=== PATIENT | female | born 1970 | race Caucasian/White ===

== ENCOUNTER 2017-12-27 09:33 | Emergency (ER) | payer MEDICAID ==
[~2017-12-27] VITALS: Ht 157.5 cm; Wt 56.7 kg
[2017-12-27 09:35] VITALS: BP 118/60
[2017-12-27] MEDS ORDERED: ALBUTEROL FS 2.5 MG/3 ML VIAL.NEB ONE (09:56)
[2017-12-27] MEDS ORDERED: IPRATROPIUM NEB FS 0.5 MG/2.5 ML AMPUL.NEB ONE (09:56)
[2017-12-27] MEDS ORDERED: IPRATROPIUM NEB FS 0.5 MG/2.5 ML AMPUL.NEB NEB ONE (10:00)
[2017-12-27] MEDS ORDERED: ALBUTEROL FS 2.5 MG/3 ML VIAL.NEB NEB ONE (10:00)
[2017-12-27] MEDS ORDERED: predniSONE 20 MG TABLET PO ONE (10:00)
[2017-12-27] MEDS ORDERED: predniSONE 20 MG TABLET ONE (10:11)
== END 2017-12-27 11:24 | disposition home or self-care (01) ==
LOC: ER 09:35
DX: J45.901 Unspecified asthma with (acute) exacerbation (principal)
CPT/HCPCS: 94640 ×2; 99284; A4606; J7512; Z7610

== ENCOUNTER 2018-03-21 23:22 | Emergency (ER) | payer BC ==
[2018-03-21] MEDS ORDERED: KETOROLAC TROMETHAMINE INJ 30 MG/ML VIAL ONE (23:54)
[2018-03-22] MEDS ORDERED: IV NS 0.9% 1,000 ML BAG IV ONE
[2018-03-22] MEDS ORDERED: KETOROLAC TROMETHAMINE INJ 30 MG/ML VIAL IV ONE
== END 2018-03-22 02:29 | disposition home or self-care (01) ==
DX: N13.2 Hydronephrosis with renal and ureteral calculous obstruction (principal); D25.9 Leiomyoma of uterus, unspecified; D72.829 Elevated white blood cell count, unspecified; J45.909 Unspecified asthma, uncomplicated; N83.201 Unspecified ovarian cyst, right side

== ENCOUNTER 2018-11-01 08:26 | Emergency (ER) | payer BC ==
[~2018-11-01] VITALS: Ht 157.5 cm; Wt 59.0 kg
[2018-11-01 08:44] VITALS: BP 97/55
== END 2018-11-01 09:03 | disposition home or self-care (01) ==
LOC: ER 08:26
DX: L03.213 Periorbital cellulitis (principal); H00.016 Hordeolum externum left eye, unspecified eyelid; J45.909 Unspecified asthma, uncomplicated
CPT/HCPCS: 99283; A4606; Z7610

== ENCOUNTER 2019-02-12 21:18 | Emergency (ER) | payer BC ==
[~2019-02-12] VITALS: Ht 157.5 cm; Wt 56.7 kg
[2019-02-12 21:57] VITALS: BP 115/78
[2019-02-12] MEDS: IPRATROPIUM NEB FS 0.5 MG/2.5 ML AMPUL.NEB NEB ONE (23:46)
[2019-02-12] MEDS: ALBUTEROL FS 2.5 MG/3 ML VIAL.NEB NEB ONE (23:46)
[2019-02-12] MEDS ORDERED: IPRATROPIUM NEB FS 0.5 MG/2.5 ML AMPUL.NEB ONE (23:49)
[2019-02-12] MEDS ORDERED: ALBUTEROL FS 2.5 MG/3 ML VIAL.NEB ONE (23:49)
[2019-02-12] MEDS ORDERED: methylPREDNISolone SOD SUCC 125 MG/2ML VIAL ONE (23:59)
[2019-02-13] MEDS ORDERED: methylPREDNISolone SOD SUCC 125 MG/2ML VIAL IM ONE
[2019-02-13] MEDS: IPRATROPIUM NEB FS 0.5 MG/2.5 ML AMPUL.NEB NEB ONE (00:01)
[2019-02-13] MEDS: ALBUTEROL FS 2.5 MG/3 ML VIAL.NEB NEB ONE (00:01)
== END 2019-02-13 00:40 | disposition home or self-care (01) ==
LOC: ER 21:24
DX: J45.909 Unspecified asthma, uncomplicated (principal); J33.9 Nasal polyp, unspecified; J34.89 Other specified disorders of nose and nasal sinuses
CPT/HCPCS: 94640; 96372; 99283; J2930

== ENCOUNTER 2019-04-25 09:47 | Emergency (ER) | payer BC ==
[~2019-04-25] VITALS: Ht 157.5 cm; Wt 56.7 kg
--- NOTE | 2019-04-25 10:00 | NUR ---
COUGH AND CONGESTION X 4 DAYS, VERTIGO X 3 DAYS. PATIENT A/OX4, BREATHING EVEN AND UNLABORED, NO SOB NOTED. WILL CONTINUE TO MONITOR.
[2019-04-25] MEDS ORDERED: ONDANSETRON HCL/PF 4 MG/2 ML VIAL ONE (10:09)
[2019-04-25] MEDS ORDERED: diphenhydrAMINE HCL 50 MG/ML VIAL ONE (10:09)
[2019-04-25 10:25] LABS: BASOPHILS # (AUTO) 0.1 /CMM (0.0-0.2); BASOPHILS % (AUTO) 0.8 % (0.0-2.0); EOSINOPHILS % (AUTO) 8.9 % (0.0-6.0); HEMATOCRIT 41 % (33-45); LYMPHOCYTES # (AUTO) 1.8 /CMM (0.8-4.8); LYMPHOCYTES % (AUTO) 23.5 % (20.0-44.0); MEAN CORPUSCULAR HGB CONC 34 g/dl (31.0-36.0); MEAN CORPUSCULAR VOLUME 91 fL (82-100); MONOCYTES # (AUTO) 0.5 /CMM (0.1-1.30); MONOCYTES % (AUTO) 6.8 % (2.0-12.0); NEUTROPHILS # (AUTO) 4.5 /CMM (1.8-8.9); PLATELET COUNT (AUTO) 297 /CMM (150-450); RED BLOOD CELL COUNT(AUTO) 4.56 MIL/uL (4.0-5.2); WHITE BLOOD COUNT (AUTO) 7.5 K/uL (4.3-11.0)
[2019-04-25 10:26] LABS: CALCIUM, SERUM 8.8 mg/dL (8.5-10.1); CREATININE 0.7 mg/dL (0.6-1.3); POTASSIUM 4.3 mmol/L (3.5-5.1)
[2019-04-25] MEDS ORDERED: diphenhydrAMINE HCL 50 MG/ML VIAL IV ONE (10:30)
[2019-04-25] MEDS ORDERED: IV NS 0.9% 1,000 ML BAG IV ONE (10:30)
[2019-04-25] MEDS ORDERED: ONDANSETRON HCL/PF 4 MG/2 ML VIAL IVP ONE (10:30)
--- NOTE | 2019-04-25 11:48 | NUR ---
Patient a/ox4, no distress noted, PIV removed, Patient discharged to home in stable condition. Written and verbal after care instructions given. Patient verbalizes understanding of instruction.
[2019-04-25 11:49] VITALS: BP 125/72
== END 2019-04-25 12:25 | disposition home or self-care (01) ==
LOC: ER 09:47
DX: J32.8 Other chronic sinusitis (principal); R42 Dizziness and giddiness; R51 Headache; J45.909 Unspecified asthma, uncomplicated
CPT/HCPCS: 36415; 70450; 80048; 84703; 85025; 96360; 99284; J1200; J2405; J7030

== ENCOUNTER 2025-06-04 23:07 | Emergency (ER) | payer SELFPAY ==
[~2025-06-04] VITALS: Ht 157.5 cm; Wt 65.8 kg
[2025-06-04] MEDS ORDERED: ONDANSETRON HCL/PF 4 MG/2 ML VIAL ONE (23:47)
[2025-06-04] MEDS: IV NS 0.9% 1,000 ML BAG IV ONE (23:59)
[2025-06-05] MEDS ORDERED: MORPHINE SULFATE INJ 4 MG/ML DISP.SYRIN ONE
[2025-06-05 00:03] LABS: PLATELET COUNT (AUTO) 255 K/uL (150-450); RED BLOOD CELL COUNT(AUTO) 4.64 MIL/uL (4.0-5.2); RED CELL DISTRIBUTION WIDTH 13.8 % (11.5-15.0); WHITE BLOOD COUNT (AUTO) 12.6 K/uL (4.3-11.0)
[2025-06-05] MEDS: ONDANSETRON HCL/PF 4 MG/2 ML VIAL IVP ONE (00:03)
[2025-06-05] MEDS: MORPHINE SULFATE INJ 2 MG/ML DISP.SYRIN IV ONE ×2 (00:03→02:17)
[2025-06-05 00:14] LABS: CALCIUM, SERUM 8.7 mg/dL (8.5-10.1); CREATININE 0.6 mg/dL (0.6-1.3); SODIUM SERUM 142.0 mmol/L (136-145); UREA NITROGEN, BLOOD 17.0 mg/dL (7-18)
[2025-06-05 00:14] LABS: APPEARANCE,URINE CLEAR (CLEAR); BLOOD, URINE NEGATIVE Ery/uL (NEGATIVE); LEUKOCYTE ESTERASE ,URINE NEGATIVE (NEGATIVE); NITRITE, URINE NEGATIVE (NEGATIVE); PREGNANCY TEST URINE QUAL NEGATIVE (NEGATIVE); UGLUCOSE NEGATIVE (NEGATIVE)
[2025-06-05 00:20] LABS: ASPARTATE AMINOTRANSFERASE 17.0 U/L (15-37); INR 0.97 (0.91-1.10); TOTAL PROTEIN, SERUM 7.3 g/dL (6.4-8.2)
[2025-06-05] MEDS ORDERED: LIDOCAINE VISCOUS 2% UD 15 ML UDC ONE (01:51)
[2025-06-05] MEDS ORDERED: MAG HYDROX/AL HYDROX/SIMETH 30 ML UDC ONE (01:51)
[2025-06-05] MEDS: MAG HYDROX/AL HYDROX/SIMETH 30 ML UDC PO ONE (01:55)
[2025-06-05] MEDS: LIDOCAINE VISCOUS 2% UD 15 ML UDC MM ONE (01:55)
[2025-06-05] MEDS ORDERED: PANT40TA2 PO (02:03)
[2025-06-05] MEDS ORDERED: ONDA4TAB5 PO (02:03)
[2025-06-05] MEDS ORDERED: MORPHINE SULFATE INJ 2 MG/ML DISP.SYRIN ONE (02:12)
[2025-06-05 02:18] VITALS: BP 133/71; TEMP 98; O2SAT 99
== END 2025-06-05 02:18 | disposition home or self-care (01) ==
LOC: ER 23:33
DX: K52.9 Noninfective gastroenteritis and colitis, unspecified (principal); K29.70 Gastritis, unspecified, without bleeding; R11.2 Nausea with vomiting, unspecified; J45.909 Unspecified asthma, uncomplicated; Z79.899 Other long term (current) drug therapy
CPT/HCPCS: 99285; 74176; 96360; 71045; 93005; 85025; 80048; 83690; 80076; 84703; 81003; 36415 ×2; 84484 ×2; 85730; 96374; 96376; J2405; J7030; J2270 ×2